=== PATIENT | female | born 1990 | race Caucasian/White ===

== ENCOUNTER 2021-07-10 21:09 | Emergency (ER) | payer SELFPAY ==
[2021-07-10] MEDS ORDERED: NAPROSYN500 MG PO (22:59)
[2021-07-10] MEDS ORDERED: CYCLOBENZAPRINE5 MG PO (22:59)
== END 2021-07-10 23:02 | disposition home or self-care (01) ==
LOC: ER1 21:09
DX: S39.012A Strain of muscle, fascia and tendon of lower back, initial encounter (principal); M54.42 Lumbago with sciatica, left side; I10 Essential (primary) hypertension; Z87.442 Personal history of urinary calculi; Z90.49 Acquired absence of other specified parts of digestive tract; Z88.2 Allergy status to sulfonamides; F17.200 Nicotine dependence, unspecified, uncomplicated; X50.9XXA Other and unspecified overexertion or strenuous movements or postures, initial encounter
CPT/HCPCS: 72100; 96372; 99283; J1885